=== PATIENT | female | born 1995 | race Caucasian/White ===

== ENCOUNTER 2017-10-01 19:05 | Emergency (ER) | payer SELFPAY ==
[2017-10-01 19:12] VITALS: BP 113/77
[2017-10-01 20:30] LABS: Amorphous Crystals,Urine Few; Bilirubin,Urine NEG (Negative); Color,Urine Yellow (Yellow); Protein,Urine <15 mg/dL mg/dL (Negative); Urobilinogen,Urine < 2.0 mg/dL (<2.0)
[2017-10-01 20:31] LABS: Blood,Urine MOD (Negative); RBC,Urine < 1.0 /HPF (0.0-6.0)
[2017-10-01 21:45] LABS: Basophils # (Auto) 0.1 K/mm3 (0.0-0.1); Basophils % (Auto) 0.6 % (0.0-1.8); Eosinophils # (Auto) 0.2 K/mm3 (0.0-0.4); Eosinophils % (Auto) 2.2 % (0.0-4.3); Hematocrit 33.4 % (30.3-42.9); Lymphocytes % (Auto) 33.2 % (13.4-35.0); Mean Corpuscular HGB Conc 33 % (30-34); Mean Corpuscular Hemoglobin 27 pg (28-32); Mean Corpuscular Volume 81 fl (79-97); Monocytes # (Auto) 0.7 K/mm3 (0.0-0.8); Monocytes % (Auto) 7.1 % (0.0-7.3); Platelet Count 316 K/mm3 (140-440); Red Blood Count 4.12 M/mm3 (3.65-5.03); Red Cell Distribution Width 19.7 % (13.2-15.2)
[2017-10-01 21:48] LABS: Alanine Aminotransferase 22 units/L (7-56); Albumin 4.3 g/dL (3.9-5); BUN/Creatinine Ratio 12; Blood Urea Nitrogen 6 mg/dL (7-17); Calcium 9.6 mg/dL (8.4-10.2); Hemolysis Index 2
--- NOTE | 2017-10-01 22:11 | Ultrasound Report ---
FINAL REPORT EXAM: US OB < = 14 WEEKS FETUS HISTORY: with vaginal bleeding TECHNIQUE: Real-time sonography was performed of the gravid uterus transabdominally and endovaginally and images are submitted for interpretation. PRIORS: None. FINDINGS: There is an irregularly shaped gestational sac with scattered heterogeneous internal echoes. There is no normal appearing pole or yolk sac. Average sac diameter was not determined during the sonographic examination but based on the submitted images is estimated to be about 3.5 cm. Both ovaries are visualized and appear normal. The right ovary measures 2.8 x 1.4 x 1.5 cm and the left measures 2.2 x 1.4 x 1.4 cm. IMPRESSION: Large misshapen gestational sac without evidence of IUP. Probable failed 1st trimester . Correlation quantitative beta HCG levels is recommended.
--- NOTE | 2017-10-01 22:12 | Ultrasound Report ---
FINAL REPORT EXAM: US TRANSVAGINAL HISTORY: with vaginal bleeding TECHNIQUE: Real-time sonography was performed of the pelvis transabdominally and endovaginally and images are submitted for interpretation. PRIORS: None. FINDINGS: There is an irregularly shaped gestational sac with scattered heterogeneous internal echoes. There is no normal appearing pole or yolk sac. Average sac diameter was not determined during the sonographic examination but based on the submitted images is estimated to be about 3.5 cm. Both ovaries are visualized and appear normal. The right ovary measures 2.8 x 1.4 x 1.5 cm and the left measures 2.2 x 1.4 x 1.4 cm. IMPRESSION: Large misshapen gestational sac without evidence of IUP. Probable failed 1st trimester . Correlation quantitative beta HCG levels is recommended.
[2017-10-02] MEDS ORDERED: TYLENOL #3 PO ONE (00:15)
--- NOTE | 2017-10-02 00:53 | Emergency Department Report ---
HPI - General Chief Complaint: Abdominal Pain Time Seen by Provider: 10/01/17 23:25 - HPI HPI: The patient is a 22-year-old female , unknown EGA, whom presents for evaluation of abdominal pain and vaginal bleeding. The patient reports 3 days of lower abdominal pain, crampy in quality, moderate severity, and associated with moderate to severe vaginal bleeding. The patient denies fever, headache, dizziness, syncope, trauma to the abdomen, neck pain, paresthesias, focal motor weakness, blurry vision, ear pain, tinnitus, chest pain, hemoptysis, dyspnea, abdominal pain, confusion or altered mental status, dysuria, vaginal discharge. ED Past Medical Hx - Past Medical History Previous Medical History?: No Hx Hypertension: No (pre-eclampsia) - Surgical History Past Surgical History?: No - Social History Smoking Status: Current Every Day Smoker Substance Use Type: Alcohol, Marijuana - Medications Home Medications: Home Medications Medication Instructions Recorded Confirmed Last Taken Type Acetaminophen [Tylenol] 500 mg PO Q6HR #30 tablet 10/02/17 Unknown Rx Ondansetron [Zofran TAB] 4 mg PO Q8HR PRN #15 tablet 10/02/17 Unknown Rx Pnv No.95/Ferrous Fum/Folic AC 1 each PO QDAY #31 tablet 10/02/17 Unknown Rx [ Vitamin Tablet] ED Review of Systems ROS: Stated complaint: AND BLEEDING Other details as noted in HPI Constitutional: denies: fever ENT: denies: throat or neck pain Respiratory: denies: cough, shortness of breath Cardiovascular: denies: chest pain Endocrine: denies unexplained weight loss or gain Gastrointestinal: reports: abdominal pain, nausea Genitourinary: reports vb denies: dysuria Musculoskeletal: denies: leg swelling Skin: denies: rash Neurological: denies: headache Hematological/Lymphatic: denies: easy bleeding or easy bruising Psych: denies sadness or hopelessness Physical Exam - Physical Exam Vital Signs: Vital Signs 10/01/17 10/01/17 19:09 19:11 Temperature 98.4 F 98.4 F Pulse Rate 80 80 Respiratory 16 16 Rate Blood Pressure 113/77 Blood Pressure 113/77 [Right] O2 Sat by Pulse 100 100 Oximetry Physical Exam: General: well-nourished, well-developed, no acute distress Head: Normocephalic, atraumatic Eyes: normal sclera ENT: Mucous membranes are pink and moist Neck: trachea midline, neck supple, No neck stiffness, no cervical adenopathy Respiratory: Breath sounds equal bilaterally, no wheezing, rales, or rhonchi Cardio: S1 and S2 present, no murmurs, rubs, gallops, capillary refill is brisk Abdomen: Normoactive bowel sounds, soft abdomen, suprapubic tenderness to palpation present, she will be tenderness to palpation present, no rigidity, no guarding or rebound tenderness Chest WALL/Back: No tenderness to palpation of the chest wall, no CVA tenderness with percussion Musc: No pitting edema Skin: No rash Neuro: no facial drooping, normal speech Psych: Normal affect ED Course Vital Signs 10/01/17 10/01/17 19:09 19:11 Temperature 98.4 F 98.4 F Pulse Rate 80 80 Respiratory 16 16 Rate Blood Pressure 113/77 Blood Pressure 113/77 [Right] O2 Sat by Pulse 100 100 Oximetry ED Medical Decision Making - Lab Data Result diagrams: 10/01/17 21:15 10/01/17 21:15 - Medical Decision Making The patient was seen and examined by myself. The patient is placed on a site monitor and continuous pulse ox. On initial evaluation, the patient was found to be in no distress. Evaluation orders were placed. The patient was given nausea medicine. Lab results exhibited positive beta hCG and Rh+ blood type. Ultrasound of the pelvis was negative for intrauterine gestation, but did demonstrate gestational sac. The patient is informed that ectopic is unable to be ruled out, and that she must presents for repeat beta hCG testing in 48 hours. The patient was reevaluated and reported that their symptoms were markedly improved. The patient is stable for discharge with outpatient follow-up. The patient is given follow-up and return instructions. The patient expressed understanding and agreed with the plan. The patient is discharged in stable condition. Critical care attestation.: If time is entered above; I have spent that time in minutes in the direct care of this critically ill patient, excluding procedure time. ED Disposition Clinical Impression: Threatened miscarriage in early , Acute bilateral lower abdominal pain Disposition: TO HOME OR SELFCARE Is pt being admited?: No Does the pt Need Aspirin: No Condition: Stable Instructions: Abdominal Pain (ED), Threatened Miscarriage (ED) Additional Instructions: Your ultrasound was unable to identify a normal intrauterine , and also was not able to rule out an ectopic . Make sure to follow-up with your [facility] within the next 48 hours for repeat B-HCG testing and trending. Your beta hCG level should double in 2 days if your is progressing as normal. You could have an ectopic and you must immediately present to an emergency department should you develop worsening of your symptoms or severe pain, vaginal bleeding, lightheadedness, passing out, confusion, or fever. Referrals: [facility] [Provider Group] - 3-5 Days Time of Disposition: 00:44
== END 2017-10-02 01:02 | disposition home or self-care (01) ==
LOC: ED 19:05
DX: O26.891 Other specified pregnancy related conditions, first trimester (principal); O20.0 Threatened abortion; F17.200 Nicotine dependence, unspecified, uncomplicated; F12.10 Cannabis abuse, uncomplicated
CPT/HCPCS: 36415; 76801; 76817; 76830; 80053; 81001; 84702; 85025; 86850; 86900; 86901